=== PATIENT | male | born 1950 | race Caucasian/White ===

== ENCOUNTER 2023-01-05 17:11 | Observation (INO) ==
[2023-01-05] MEDS ORDERED: Iodixanol (CONTRAST) 320 MG/ML 100 ML SDV IV ONE (17:30)
[2023-01-05 17:36] LABS: ABS Eosinophils 0.1 10^3/uL (0.0-0.5); ABS Lymphocytes 0.8 10^3/uL (1.0-4.8); ABS Monocytes 0.2 10^3/uL (0.0-1.1); ABS Neutrophils 2.1 10^3/uL (1.5-7.6); Eosinophil % 3.1 %; Hemoglobin 11.6 g/dL (13.2-16.3); Lymphocyte % 25.3 %; Mean Corpuscular Hemoglobin 31.6 pg (27-33); Mean Corpuscular Hgb Conc 34.2 g/dL (31-36); Mean Corpuscular Volume 92.3 fL (80-97); Mean Platelet Volume 6.5 fL (7.5-11.2); Nucleated Red Blood Cells % 0.1 /100 WBC (0.0-0.4); Platelet Count 155 10^3/uL (150-450); Red Blood Count 3.68 10^6/uL (4.06-5.63); White Blood Count 3.2 10^3/uL (3.6-10.2)
[2023-01-05 17:44] LABS: Activated Partial Thrombo Time 28.2 seconds (26.0-38.0); INR 1.14 (0.88-1.18)
[2023-01-05 17:59] LABS: Albumin 3.6 g/dL (3.2-5.2); Albumin/Globulin Ratio 1.6 (1-3); Calcium 8.3 mg/dL (8.6-10.3); Creatinine, Serum 1.06 mg/dL (0.67-1.17); Globulin 2.3 g/dL (2-4); HDL Cholesterol 38.4 mg/dL; Total Bilirubin 0.5 mg/dL (0.2-1.0); Total Protein 5.9 g/dL (6.4-8.9); eGFR CKD-EPI 73.6 (>60)
[2023-01-05] MEDS ORDERED: NS 0.9% 1000 ml BAG 1,000 ML IV ONE (18:13)
[2023-01-05 20:22] LABS: Urine Appearance Clear; Urine Bilirubin Negative (Negative); Urine Blood Negative (Negative); Urine Color Yellow; Urine Glucose Negative (Negative); Urine Ketones Trace (Negative); Urine Nitrite Negative (Negative); Urine Protein Negative (Negative); Urine Specific Gravity 1.055 (1.002-1.030); Urine Urobilinogen Negative (Negative)
[2023-01-05] MEDS: Carbidopa/Levodop CR 50/200 TAB.CR PO SCH (22:46)
[2023-01-05] MEDS: Heparin 5000 UNITS/ML 1 mL VIAL SUBCUT SCH (22:52)
[2023-01-06] MEDS ORDERED: Labetalol IV 5 MG/ML 20 ml VIAL IV PUSH ONE ×2 (02:05→09:16)
[2023-01-06] MEDS ORDERED: Labetalol IV 5 MG/ML 20 ml VIAL ONE (02:27)
[2023-01-06] MEDS: Heparin 5000 UNITS/ML 1 mL VIAL SUBCUT SCH ×3 (06:55→21:10)
[2023-01-06 07:07] LABS: ABS Basophils 0.1 10^3/uL (0.0-0.1); ABS Eosinophils 0.1 10^3/uL (0.0-0.5); ABS Lymphocytes 0.5 10^3/uL (1.0-4.8); ABS Monocytes 0.3 10^3/uL (0.0-1.1); ABS Neutrophils 3.1 10^3/uL (1.5-7.6); ABS Nucleated RBC 0.01 10^3/ul; Eosinophil % 2.5 %; Hematocrit 35.7 % (38-53); Hemoglobin 12.3 g/dL (13.2-16.3); Lymphocyte % 12.1 %; Mean Corpuscular Hemoglobin 31.6 pg (27-33); Mean Corpuscular Hgb Conc 34.3 g/dL (31-36); Mean Corpuscular Volume 92.2 fL (80-97); Mean Platelet Volume 6.2 fL (7.5-11.2); Nucleated Red Blood Cells % 0.2 /100 WBC (0.0-0.4); Platelet Count 143 10^3/uL (150-450); Red Blood Count 3.87 10^6/uL (4.06-5.63); White Blood Count 4.1 10^3/uL (3.6-10.2)
[2023-01-06 07:20] LABS: Calcium 7.9 mg/dL (8.6-10.3); Creatinine, Serum 0.82 mg/dL (0.67-1.17); Potassium 3.7 mmol/L (3.5-5.0); eGFR CKD-EPI 92.2 (>60)
[2023-01-06] MEDS: Carbidopa/Levodop 25/100 MG TAB PO SCH ×3 (10:47→21:10)
[2023-01-06] MEDS: Carbidopa/Levodop CR 50/200 TAB.CR PO SCH (21:10)
[2023-01-07] MEDS: Heparin 5000 UNITS/ML 1 mL VIAL SUBCUT SCH ×2 (05:40→12:46)
[2023-01-07] MEDS: Carbidopa/Levodop 25/100 MG TAB PO SCH ×3 (10:11→17:03)
[2023-01-07 14:41] VITALS: BP 105/64
== END 2023-01-07 18:00 | disposition home or self-care (01) ==
LOC: ED 17:11 → EDHOLD 17:11 → SUATTDRO 18:20 → EDHOLD 01-06 09:22 → MEDTELE 01-06 10:37
PROVIDERS: ADMIT Internal Medicine; ATTEND Internal Medicine

== ENCOUNTER 2023-01-08 22:15 | Observation (INO) ==
[2023-01-08 22:34] LABS: ABS Eosinophils 0.1 10^3/uL (0.0-0.5); ABS Lymphocytes 0.7 10^3/uL (1.0-4.8); ABS Monocytes 0.2 10^3/uL (0.0-1.1); ABS Neutrophils 2.9 10^3/uL (1.5-7.6); ABS Nucleated RBC 0.01 10^3/ul; Eosinophil % 3.5 %; Hematocrit 33.6 % (38-53); Hemoglobin 11.6 g/dL (13.2-16.3); Lymphocyte % 16.7 %; Mean Corpuscular Hemoglobin 31.1 pg (27-33); Mean Corpuscular Hgb Conc 34.7 g/dL (31-36); Mean Corpuscular Volume 89.9 fL (80-97); Mean Platelet Volume 6.5 fL (7.5-11.2); Nucleated Red Blood Cells % 0.2 /100 WBC (0.0-0.4); Platelet Count 146 10^3/uL (150-450); Red Blood Count 3.74 10^6/uL (4.06-5.63); Red Cell Distribution Width 14.8 % (12-17); White Blood Count 3.9 10^3/uL (3.6-10.2)
[2023-01-08] MEDS ORDERED: Iodixanol (CONTRAST) 320 MG/ML 100 ML SDV IV ONE (22:35)
[2023-01-08 22:41] LABS: Activated Partial Thrombo Time 28.4 seconds (26.0-38.0); INR 1.14 (0.88-1.18)
[2023-01-08 22:49] LABS: Albumin 3.5 g/dL (3.2-5.2); Albumin/Globulin Ratio 1.6 (1-3); Calcium 8.1 mg/dL (8.6-10.3); Creatinine, Serum 1.44 mg/dL (0.67-1.17); Globulin 2.2 g/dL (2-4); HDL Cholesterol 36.4 mg/dL; Potassium 4.3 mmol/L (3.5-5.0); Total Bilirubin 0.6 mg/dL (0.2-1.0); Total Protein 5.7 g/dL (6.4-8.9)
[2023-01-08] MEDS ORDERED: Lactated Ringers 1000 ml BAG 1,000 ML IV ONE (23:03)
[2023-01-08] MEDS ORDERED: Enoxaparin 40 MG/0.4 ML SYR SUBCUT SCH (23:45)
[2023-01-09 01:08] LABS: Urine Appearance Clear; Urine Bilirubin Negative (Negative); Urine Blood Negative (Negative); Urine Color Yellow; Urine Glucose Negative (Negative); Urine Ketones Negative (Negative); Urine Nitrite Negative (Negative); Urine Protein Negative (Negative); Urine Specific Gravity 1.025 (1.002-1.030); Urine Urobilinogen Negative (Negative)
[2023-01-09 05:39] LABS: Calcium 8.4 mg/dL (8.6-10.3); Creatinine, Serum 1.17 mg/dL (0.67-1.17); Potassium 4.3 mmol/L (3.5-5.0); eGFR CKD-EPI 65.4 (>60)
[2023-01-09 06:47] LABS: Urine Creatinine Concentration 33.11 mg/dL (20.00-370.00)
[2023-01-09] MEDS ORDERED: Gadoteridol (CONTRAST) 279.3 MG/ML 10 ML IV ONE (08:19)
[2023-01-09] MEDS ORDERED: TADALAFIL 5 MG PO SCH (09:00)
[2023-01-09] MEDS: Carbidopa/Levodop 25/100 MG TAB PO SCH ×2 (09:26→14:11)
[2023-01-09 12:07] VITALS: BP 126/78
[2023-01-09] MEDS ORDERED: Carbidopa/Levodop CR 50/200 TAB.CR PO SCH (21:00)
== END 2023-01-09 15:00 | disposition short-term general hospital (02) ==
LOC: EDHOLD 22:15 → ED 22:15 → MEDTELE 01-09 01:07
PROVIDERS: ADMIT Internal Medicine; ATTEND Internal Medicine

== ENCOUNTER 2023-01-28 02:49 | Inpatient (IN) ==
[2023-01-28] MEDS ORDERED: NS 0.9% 1000 ml BAG 1,000 ML IV ONE ×2 (03:04→04:58)
[2023-01-28 03:27] LABS: ABS Lymphocytes 0.8 10^3/uL (1.0-4.8); ABS Monocytes 0.6 10^3/uL (0.0-1.1); ABS Neutrophils 4.7 10^3/uL (1.5-7.6); Eosinophil % 0.3 %; Hemoglobin 11.4 g/dL (13.2-16.3); Lymphocyte % 13.4 %; Mean Corpuscular Hemoglobin 31.3 pg (27-33); Mean Corpuscular Hgb Conc 34.4 g/dL (31-36); Mean Corpuscular Volume 91.1 fL (80-97); Mean Platelet Volume 6.8 fL (7.5-11.2); Nucleated Red Blood Cells % 0.1 /100 WBC (0.0-0.4); Platelet Count 167 10^3/uL (150-450); Red Blood Count 3.62 10^6/uL (4.06-5.63); Red Cell Distribution Width 14.9 % (12-17); White Blood Count 6.1 10^3/uL (3.6-10.2)
[2023-01-28 03:38] LABS: ALT 9 U/L (7-52); Albumin 3.3 g/dL (3.2-5.2); Albumin/Globulin Ratio 1.2 (1-3); Alkaline Phosphatase 45 U/L (35-149); Blood Urea Nitrogen 37 mg/dL (6-24); CO2 Carbon Dioxide 19 mmol/L (22-32); Calcium 8.2 mg/dL (8.6-10.3); Chloride 99 mmol/L (101-111); Globulin 2.8 g/dL (2-4); Glucose 122 mg/dL (70-100); Sodium 132 mmol/L (135-145); Total Protein 6.1 g/dL (6.4-8.9); eGFR CKD-EPI 48.6 (>60)
[2023-01-28 03:39] LABS: Anion Gap 14 mmol/L (2-16)
[2023-01-28 03:45] LABS: High Sens Troponin Baseline 21 pg/mL (<20)
[2023-01-28 03:55] LABS: Alcohol, S < 13 mg/dL (<13)
[2023-01-28 04:11] LABS: TSH Ultra Thyroid Stim Horm 3.47 mcIU/mL (0.34-5.60)
[2023-01-28 04:54] LABS: INR 1.36 (0.88-1.18)
[2023-01-28] MEDS ORDERED: Ondansetron 4 mg VIAL 2 MG/ML 2 ml VIAL IV PRN (04:55)
[2023-01-28 05:12] LABS: High Sensitivity Troponin 1 Hr 26 pg/mL (<20)
[2023-01-28] MEDS ORDERED: NS 0.9% 500 ml BAG 500 ML IV ONE ×2 (06:13→11:00)
[2023-01-28] MEDS: Carbidopa/Levodop 25/100 MG TAB PO SCH ×3 (07:55→23:03)
[2023-01-28] MEDS ORDERED: tadalafiL 5 MG TABLET (NF) PO SCH (09:00)
[2023-01-28 09:41] LABS: Urine Appearance Cloudy; Urine Bilirubin Negative (Negative); Urine Blood Negative (Negative); Urine Color Amber; Urine Glucose Negative (Negative); Urine Ketones Trace (Negative); Urine Nitrite Negative (Negative); Urine Protein 1+(30 mg/dL) (Negative); Urine Specific Gravity 1.023 (1.002-1.030); Urine Urobilinogen Positive (Negative)
[2023-01-28 09:52] LABS: Urine Bacteria Absent (Absent); Urine Red Blood Cell Trace(0-2/hpf) (Absent); Urine White Blood Cell Trace(0-5/hpf) (Absent)
[2023-01-28] MEDS ORDERED: fentaNYL 100 mcg/2 ml 50 MCG/ML VIAL ONE (11:49)
[2023-01-28] MEDS ORDERED: Midazolam 5 mg/5 ml VIAL 1 mg/ml 5 ml VIAL (5 mg) ONE (11:49)
[2023-01-28] MEDS ORDERED: Flumazenil 0.5 mg/5 ml 0.1 MG/ML 5 ml VIAL ONE (11:50)
[2023-01-28] MEDS ORDERED: Naloxone 0.4 mg VIAL 0.4 mg/ml 1 ml VIAL ONE (11:50)
[2023-01-28] MEDS ORDERED: Benzocaine/Butamben/Tetracain (CETACAINE - SINGLE USE) 5 gm TOPICAL ONE (11:50)
[2023-01-28] MEDS ORDERED: Digoxin IV 0.5 MG/2 ML AMP (0.25 MG/ML) IV SLOW PU ONE (14:15)
[2023-01-28] MEDS ORDERED: Digoxin IV 0.5 MG/2 ML AMP (0.25 MG/ML) ONE (14:18)
[2023-01-28] MEDS ORDERED: Amiodarone 150 mg IVPREMIX 150 MG/100 ML BAG IV ONE (15:45)
[2023-01-28] MEDS ORDERED: Amiodarone 360 MG IVPREMIX 360 MG/200 ML BAG IV ONE ×2 (15:45→21:45)
[2023-01-28] MEDS ORDERED: Midazolam 10 mg/10 ml VIAL 1 mg/ml 10 ml VIAL (10 mg) IV SLOW PU ONE (16:23)
[2023-01-28] MEDS ORDERED: fentaNYL 100 mcg/2 ml 50 MCG/ML VIAL IV SLOW PU ONE (16:23)
[2023-01-28] MEDS ORDERED: Lactated Ringers 1000 ml BAG 500 ML IV ONE (18:51)
[2023-01-28] MEDS: Carbidopa/Levodop CR 50/200 TAB.CR PO SCH (23:04)
[2023-01-28] MEDS: Latanoprost 0.005% 2.5 ml BTL BOTH EYES SCH (23:05)
[2023-01-28] MEDS: Amiodarone 360 MG IVPREMIX 360 MG/200 ML BAG IV SCH (23:05)
[2023-01-29 06:22] LABS: ABS Eosinophils 0.1 10^3/uL (0.0-0.5); ABS Lymphocytes 0.7 10^3/uL (1.0-4.8); ABS Monocytes 0.5 10^3/uL (0.0-1.1); ABS Neutrophils 3.7 10^3/uL (1.5-7.6); Eosinophil % 1.2 %; Hematocrit 30.5 % (38-53); Hemoglobin 10.6 g/dL (13.2-16.3); Lymphocyte % 14.4 %; Mean Corpuscular Hemoglobin 31.2 pg (27-33); Mean Corpuscular Hgb Conc 34.8 g/dL (31-36); Mean Corpuscular Volume 89.6 fL (80-97); Mean Platelet Volume 6.9 fL (7.5-11.2); Nucleated Red Blood Cells % 0.1 /100 WBC (0.0-0.4); Platelet Count 180 10^3/uL (150-450)
[2023-01-29 06:40] LABS: Calcium 7.7 mg/dL (8.6-10.3); Creatinine, Serum 1.04 mg/dL (0.67-1.17); Phosphorus 2.8 mg/dL (2.5-5.0); eGFR CKD-EPI 75.3 (>60)
[2023-01-29] MEDS: Carbidopa/Levodop 25/100 MG TAB PO SCH ×3 (08:59→20:29)
[2023-01-29] MEDS: Amiodarone 360 MG IVPREMIX 360 MG/200 ML BAG IV SCH (09:29)
[2023-01-29] MEDS: Amiodarone 400 mg TAB PO SCH ×2 (13:43→20:30)
[2023-01-29] MEDS: Carbidopa/Levodop CR 50/200 TAB.CR PO SCH (20:28)
[2023-01-29] MEDS: Latanoprost 0.005% 2.5 ml BTL BOTH EYES SCH (20:28)
[2023-01-30 04:50] LABS: ABS Eosinophils 0.1 10^3/uL (0.0-0.5); ABS Lymphocytes 0.7 10^3/uL (1.0-4.8); ABS Monocytes 0.5 10^3/uL (0.0-1.1); ABS Neutrophils 3.7 10^3/uL (1.5-7.6); ABS Nucleated RBC 0.01 10^3/ul; Eosinophil % 1.4 %; Hematocrit 29.7 % (38-53); Hemoglobin 10.8 g/dL (13.2-16.3); Lymphocyte % 13.6 %; Mean Corpuscular Hemoglobin 32.9 pg (27-33); Mean Corpuscular Hgb Conc 36.3 g/dL (31-36); Mean Corpuscular Volume 90.8 fL (80-97); Mean Platelet Volume 6.7 fL (7.5-11.2); Nucleated Red Blood Cells % 0.2 /100 WBC (0.0-0.4); Platelet Count 177 10^3/uL (150-450); Red Blood Count 3.27 10^6/uL (4.06-5.63); Red Cell Distribution Width 14.8 % (12-17); White Blood Count 4.9 10^3/uL (3.6-10.2)
[2023-01-30 05:05] LABS: Albumin/Globulin Ratio 1.2 (1-3); Calcium 8.1 mg/dL (8.6-10.3); Creatinine, Serum 0.9 mg/dL (0.67-1.17); Globulin 2.5 g/dL (2-4); Total Bilirubin 0.5 mg/dL (0.2-1.0); Total Protein 5.5 g/dL (6.4-8.9); eGFR CKD-EPI 89.6 (>60)
[2023-01-30 07:36] LABS: Magnesium 1.9 mg/dL (1.9-2.7)
[2023-01-30] MEDS: Carbidopa/Levodop 25/100 MG TAB PO SCH (08:44)
[2023-01-30] MEDS: Amiodarone 400 mg TAB PO SCH (08:45)
[2023-01-30 13:12] VITALS: BP 115/75
== END 2023-01-30 13:24 | disposition home or self-care (01) | DRG 309 ==
LOC: EDHOLD 02:49 → ED 02:49 → OBSVTOIN 04:55 → SUATTDRO 04:55 → ICU 16:10
PROVIDERS: ADMIT Student in an Organized Health Care Education/Training Program; ATTEND Internal Medicine